=== PATIENT | male | born 2005 | race Caucasian/White ===

== ENCOUNTER 2024-12-24 14:02 | Outpatient (OUT) | payer OTHER, SELFPAY ==
[2024-12-25 06:08] LABS: Hepatitis B Surf Ab Quant <3.5 mIU/mL (Immunity>10)
[2024-12-25 08:09] LABS: Measles Antibodies, IgG 96.4 AU/mL (Immune >16.4); Rubella Antibodies, IgG 5.26 index (Immune >0.99); Varicella-Zoster V Ab, IgG Reactive (Non Reactive)
[2024-12-26 08:08] LABS: QuantiFERON-TB Gold Plus Negative (Negative)
== END 2024-12-24 14:03 | disposition home or self-care (01) ==
LOC: LAB 14:07
PROVIDERS: PCP Family Medicine; Visit Provider Family Medicine
DX: Z00.00 Encounter for general adult medical examination without abnormal findings (principal)
CPT/HCPCS: 36415; 86317; 86480; 86735; 86762; 86765; 86787

== ENCOUNTER 2025-06-23 12:45 | Outpatient (OUT) | payer OTHER, SELFPAY ==
--- OUTSIDE RECORDS SUMMARY | 2025-06-23 12:51 | XMS_ITS | Clinical Summary ---
Author Organization [facility] Address [address] [place] [address] Care Team Providers Care Partner Management Consultant Name Role Phone Unavailable Primary Care Provider Unavailabl e Allergies No known active allergies Medications MedicationSigDispense QuantityRefillsLast FilledStart DateEnd DateStatus albuterol HFA 90 mcg/act inhaler Inhale 1 puff every 4 (four) hours if needed.10/08/2022ctive cetirizine (ZyrTEC) 10 MG tablet Take 10 mg by mouth in the morning.01/10/2023ctive fluocinonide (Lidex) 0.05 % external solution Indications:Other seborrheic dermatitisApply to scalp every day prn for itching or scale 60 mL ctive hydrocortisone 2.5 % cream Indications:Other seborrheic dermatitisApply to face BID prn, hold when clear 28 g ctive triamcinolone (Kenalog) 0.1 % cream Indications:Asteatotic eczemaApply to chest BID prn for flares. Hold when clear. Do not use on the face, neck or skin folds 80 g ctive ketoconazole (NIZOral) 2 % cream Indications:Seborrheic DermatitisApply to face QD 60 g ctive ketoconazole (NIZOral) 2 % shampoo Indications:Other seborrheic dermatitisLather on scalp daily as needed, leave on 3 minutes before rinsing 120 mL ctive Active Problems No known active problems Social History Tobacco UseTypesPacks/DayYears UsedDateSmoking Tobacco: NeverSmokeless Tobacco: Never Tobacco Cessation:Counseling Given: Not Answered Sex and Gender InformationValueDate RecordedSex Assigned at AzjtjWnde32/01/2023 8:01 PM EDTLegal RpnRgdy7910/11/2022 7:34 PM EDTGender BzbvpprgYwff31/15/2023 7:34 PM EDTSexual FkucovljejbSexfoliw89/01/2023 8:01 PM EDT Last Filed Vital Signs Vital SignReadingTime TakenCommentsBlood Syiqkdbh397/72003/01/2020 12:00 PM EDT Pulse--Temperature--Respiratory Rate--Oxygen Saturation--Inhaled Oxygen Concentration--Zdulkt88.6 kg (171 lb)03/01/2020 12:00 PM JGNDpgfon347 cm (6' 4 ) 03/01/2020 12:00 PM EDTBody Mass Index20.8103/01/2020 12:00 PM EDT Plan of Treatment [place] [address]
--- OUTSIDE RECORDS SUMMARY | 2025-06-23 12:52 | XMS_ITS | Clinical Summary ---
Author Organization [facility] Address [facility] [id number] [address] [place] [address] Care Team Providers Care Laundry Manager Name Role Phone Chad Khalil MD Primary Care Provider [phone] Allergies Active AllergyReactionsCriticalityNoted DateCommentsCat Faboyy4104/03/2017Dog Tglcfe0904/03/20175350Qklcce03/05/2017Ragweed Tfgmau3504/03/2017Tree And Shrub Pollen 04/03/2017 Social History Tobacco UseTypesPacks/DayYears UsedDateSmoking Tobacco: Never AssessedChildcare AnswerDate HyflovdmQttrhvlcwJkdpwzx08/12/2019EmploymentAnswerDate Recorded AtsxmwlzbhLcadbpn97/12/2019Purpose - LifeAnswerDate RecordedPurpose and direction in ukggJjwteeb87/11/2021Sex and Gender InformationValueDate Recorded Sex Assigned at BirthNot on fileLegal TgzDsjk4903/04/2015 12:05 PM EDTGender IdentityNot on fileSexual OrientationNot on file Last Filed Vital Signs Vital SignReadingTime TakenCommentsBlood Aekgbwzz35/5510 3:12 PM EDT Tpuhk8670 3:12 PM EDTTemperature--Respiratory Dmmd0744 3:12 PM EDTOxygen Ccequfedyl77%05/26/2013 3:12 PM EDTInhaled Oxygen Concentration-- Bpjfcq39 kg (81 lb 9.1 oz)05/26/2013 3:12 PM HKRSmabyf966.2 cm (5' 0.71 ) 05/26/2013 3:12 PM EDTBody Mass Index15.5610 3:12 PM EDT Plan of Treatment Not on file Medical Devices Not on file Insurance Care Teams Team MemberRelationshipSpecialtyStart DateEnd Chad Khalil MD [facility]10/09/12
--- OUTSIDE RECORDS SUMMARY | 2025-06-23 12:52 | XMS_ITS | Patient Health Record ---
Author Organization [facility] [place] Address [address] [place] [address] Care Team Providers Care Investment Manager Name Role Phone Randy Khalil Primary Care Provider [phone] Allergies Allergen (clinical drug ingredient) Drug/Non Drug Allergy documented on EMR Reaction Allergy Type Onset Date Status Peanuts (uncoded)anaphylaxisAllergyActive Results Component Value Reference Range Notes Measles/Mumps/Rubella Immuni ty Reviewed date:12/25/2024 05:52:36 PM Interpretation: Performing Lab: Notes/Report: [facility] , Rubella Antibodies, IgG 5.26 Immune >0.99 inde x Non-immune <0.90 Equivocal 0.90 - 0.99 Immune >0.99 Measles Antibodies, IgG 96.4 Immune >16.4 AU/m L Negative <13.5 Equivocal 13.5 - 16.4 Positive >16.4 Presence of antibodies to Rubeola is presumptive evidence of immunity except when acute infection is suspected. Mumps Abs, IgG 190.0 Immune >10.9 AU/mL Negative <9.0 Equivocal 9.0 - 10.9 Positive >10.9 A positive result generally indicates past exposure to Mumps virus or previous vaccination. Performed at: - [facility] [id number] Mems Integration Engineer: Davide Salas PhD, Phone: [phone] Performing Lab: see note - [facility] LBHepatitis B Surf Ab Quant Reviewed date:12/25/2024 05:52:36 PM Interpretation: Performing Lab: Notes/Report: [facility] ,Hepatitis B Surf Ab Quant<3.5Immunity>10 mIU/mL Status of Immunity Anti-HBs Level Inconsistent with Immunity 0.0 - 10.0 Consistent with Immunity >10.0 Performed at: [address] [id number] Mems Integration Engineer: Davide Salas PhD, Phone: [phone] Performing Lab:see [facility] LBVaricella-Zoster V Ab, IgG Reviewed date:12/25/2024 05:52:36 PM Interpretation: Performing Lab: Notes/Report: [facility] ,Varicella-Zoster V Ab, IgGReactiveNon Reactive Please note reference interval change A Reactive result is considered evidence of immunity to VZV. Reactive indicates that VZV IgG was detected consistent with previous infection and/or vaccination. A Non Reactive result indicates that VZV IgG was not detected suggesting that immunity has not been acquired. Performed at: [address] [id number] Mems Integration Engineer: Davide Salas PhD, Phone: [phone] Performing Lab:[facility] LBQuantiFERON-TB Gold Plus Reviewed date:12/28/2024 04:22:34 PM Interpretation: Performing Lab: Notes/Report: [facility] ,QuantiFERON Incubation. Incubation performed. Reference Range: . QuantiFERON-TB Gold PlusNegativeNegative No response to M tuberculosis antigens detected. Infection with M tuberculosis is unlikely, but high risk individuals should be considered for additional testing (ATS/IDSA/CDC Clinical Practice Guidelines, 2017). The reference range is an Antigen minus Nil result of <0.35 IU/mL. Chemiluminescence immunoassay methodology Performed at: [address] [id number] Mems Integration Engineer: Davide Salas PhD, Phone: [phone] QuantiFERON CriteriaComment. QuantiFERON-TB Gold Plus is a qualitative indirect test for M tuberculosis infection (including disease) and is intended for use in conjunction with risk assessment, radiography, and other medical and diagnostic evaluations. The QuantiFERON-TB Gold Plus result is determined by subtracting the Nil value from either TB antigen (Ag) value. The Mitogen tube serves as a control for the test. QuantiFERON TB1 Ag Value0.00. IU/mLQuantiFERON TB2 Ag Value0.00. IU/mL QuantiFERON Nil Value0.00. IU/mLQuantiFERON Mitogen Value>10.00. IU/mLPerforming Lab:see noteLC - [facility] LB Reason For Referral No Information Medications Medication SIG (Take, Route, Frequency, Duration) Notes Start Date End Date Status Cetirizine HCl 10 MG TAKE 1 TABLET BY MOUTH EVER Y DAY FOR 90 DAYS; Duration: 90 ActiveVentolin HFA 108 (90 Base) MCG/ACT2 puff as needed Inhalation every 4 hrs; Duration: 30 ibkoRJG8703/08/2023ctiveEpiPen 2-Bo 0.3 MG/0.3MLas directed Injection SINGLE DOSE FOR PEANUT ALLERGY; Duration: 30 daysPRNActive Immunizations Vaccine Route Administration Date Status Comme nts Tdap (Adacel) IM Intramuscular 12/24/2024 Administered Social History Tobacco Use: Social History Observation Description Date Details (start date - stop date) Never Smoker NA - NA Tobacco Use/Smoking Question Answer Notes Patient is a nonsmoker Alcohol Screen (Audit-C) Question Answer Notes Did you have a drink containing alcohol in the p ast year? Yes How often did you have 6 or more drinks on one occasion in the past year?Monthly or less (1 point)How many drinks did you have on a typical day when you were drinking in the past year?1 or 2 drinks (0 point)How often did you have a drink containing alcohol in the past year?Weekly (3 points)Llcrjq7Ugojltmjhwahrg PositiveAUDIT-C (Standard) Question Answer Notes Did you have a drink containing alcohol in the p ast year? 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 [place] [place] [address] 06/23/2025 Randy Hoy Well adult Z00.00 an d Retractile testis Q55.22 [facility] [address] [place] [address] 12/24/2024 Randy Hoy Well adult Z00.00 an d Encounter for immunization Z23 [facility] [address] [place] [place] [address] 12/25/2024 Randy Hoy [facility] [place] [address] 12/28/2024Doug [facility] [place] [address]/Doug HoyPre-employment examination Z02.1[facility] [place] [place] [address]/Doug Hoy Pre-employment examination Z02.[facility] [place] [address]/07/2024Doug [facility] [address] [place] [address]/Doug Hoy Assessments Encounter Date Diagnosis (ICD Code) Assessment Notes Treatment Notes Treatment Clinical Notes Section Notes 12/24/2024 Well adult (ICD-10 - Z00.00) 06/23/2025Retractile testis (ICD-10 - Q55.22)06/23/2025Well adult (ICD-10 - Z00.00)02/17/2025Pre-employment examination (ICD-10 - Z02.1)03/25/2025Pre- employment examination (ICD-10 - Z02.1)12/24/2024Encounter for immunization (ICD-10 - Z23) Plan Of Treatment Pending Test Test Name Order Date HEPATITIS B SURFACE AG 02/17/2025 Alpha Fetoprotein Tumor Marker US Testicular w/ Duplex 06/23/2025 CBC AUTO DIFF 06/23/2025 HEPATITIS B SURFACE ANTIBODY, QUANT 08/2 01/2025 LDH 06/23/2025 PREG QUANT HCG 06/23/2025 PROF 14(COMP METB) 06/23/2025 QUANTIFERON TB GOLD PLUS 12/24/2024 VARICELLA IGG AB 12/24/2024 CT PELVIS W CON 06/23/2025 US PELVIS 06/23/2025 Hep B Core Ab, Tot 12/24/2024 Hep B Surface Ab 12/24/2024 US Scrotum 06/23/2025 Insurance Providers Payer Name Payer Address Payer Phone Subscriber Number Group Number Insured Name Patient Relationship to Insured Coverage Start Date Coverage End Date MMO [employer] [address] [place] [address] [id number] Gustabo Garcia Self - patient is the insured Medical (General) History Medical History History ICD Code Asthma J45.909 Polyp of nasal cavity J33.0 Surgical History Surgery Date(Month/Year) [place] teeth 02/2023 ADENOIDECTOMY,UNDER 12YRS
--- NOTE | 2025-06-23 13:00 | US_ITS ---
[address] [address] Patient Name: RASHIDA REYES MRN: [id number] date: 2005 Sex: M Assigned Patient Location: LAB Current Patient Location: LAB Accession/Order Number: [id number] Exam Date: 06/23/2025 13:01 Report Date: 06/23/2025 13:52 At the request of: JAYSON ARMENTA MD Procedure: US scrotum doppler Scrotal ultrasound Reason for exam: Undescended testicle since at least the age of 13. Comparison: none Technique: Grayscale, color Doppler and spectral Doppler images of the scrotal contents were obtained. Findings: The right testicle measures 4.4 x 2.9 x 1.3 cm and is located within the right inguinal canal. No evidence of testicular mass or microlithiasis. Normal arterial and venous Doppler waveforms. Epididymis appears unremarkable. No hydrocele. The left testicle is normally situated within the scrotal sac measuring 5.0 x 3.4 x 3.0 cm. No evidence of testicular mass or microlithiasis. Normal arterial and venous Doppler waveforms. 4 mm epididymal cyst. Minimal hydrocele. US/US scrotum doppler Impression: No evidence of testicular mass, orchitis, epididymitis or torsion. The right testicle is within the right inguinal canal. 4 mm epididymal cyst. Minimal right-sided hydrocele. Impression dictated by: Giuseppe aBrrow Jr., D.O. 06/23/2025 1:52 PM Dictation Location: [place] [address] Electronically authenticated by: [id number] Y Date: 06/23/2025 13:52
[2025-06-23 13:48] LABS: Hematocrit 47.5 % (42.0-54.0); Hemoglobin 16.4 g/dL (14.0-18.0); Immature Granulocytes Abs Auto 0.02 10^3/uL (0.00-0.03); Immature Granulocytes Pct Auto 0.3 % (0.0-0.5); Lymphocytes Absolute Auto 1.5 10^3/uL (1.2-3.8); Mean Corpuscular HGB Conc 34.5 g/dL (29.9-35.2); Mean Corpuscular Hemoglobin 32.3 pg (25.9-34.0); Mean Corpuscular Volume 93.7 fL (80.0-94.0); Platelet Count 238 10^3/uL (150-450); Red Blood Count 5.07 10^6/uL (4.70-6.10); White Blood Count 6.8 10^3/uL (4.0-11.0)
[2025-06-23 14:06] LABS: Alanine Aminotransferase 29 U/L (16-63); Albumin Globulin Ratio 1.2; Albumin Level 4.1 g/dL (3.4-5.0); Alkaline Phosphatase 110 U/L (46-116); Anion Gap 11.6; Aspartate Amino Transferase 16 U/L (15-37); Blood Urea Nitrogen 17.0 mg/dL (7.0-18.0); Calcium 9.3 mg/dL (8.5-10.1); Carbon Dioxide 31.8 mmol/L (21.0-32.0); Chloride 104 mmol/L (98-107); Estimated GFR (African America >60 (>=60 mL/min/1.73m^2); Estimated GFR (Non-African Ame >60 (>=60 mL/min/1.73m^2); Globulin 3.5 g/dL; Glucose 68 mg/dL (74-106); Potassium 4.4 mmol/L (3.5-5.1); Sodium 143 mmol/L (136-145); Total Protein 7.6 g/dL (6.4-8.2)
[2025-06-24 04:09] LABS: AFP, Serum, Tumor Marker <1.8 ng/mL (0.0-5.7)
== END 2025-06-23 12:46 | disposition home or self-care (01) ==
LOC: LAB 12:49
PROVIDERS: PCP Family Medicine; Visit Provider Family Medicine
DX: Q55.22 Retractile testis (principal); N50.3 Cyst of epididymis
CPT/HCPCS: 36415; 76870; 80053; 82105; 83615; 84702; 85025; 93976

== ENCOUNTER 2025-07-09 08:10 | Outpatient (OUT) | payer OTHER, SELFPAY ==
--- NOTE | 2025-07-09 08:14 | CT_ITS ---
The [address] [address] Patient Name: RASHIDA REYES MRN: [id number] date: 2005 Sex: M Assigned Patient Location: CT Current Patient Location: CT Accession/Order Number: [id number] Exam Date: 07/09/2025 08:48 Report Date: 07/09/2025 09:34 At the request of: JAYSON ARMENTA MD Procedure: CT pelvis w con CT PELVIS WITHOUT CONTRAST CLINICAL DATA: Undescended right testis COMPARISON: Ultrasound 06/23/2025 Spiral images were obtained through the pelvis following 100 mL of Omnipaque 300. This CT exam was performed using one or more following dose reduction techniques: Automated exposure control, adjustment of the mA and/or kV according to patient size, or use of iterative reconstruction technique. The small bowel loops in the egwws-fc-fzpw are within normal limits for caliber. There is air and stool within the right colon and rectosigmoid region. No diverticular disease is noted. The appendix is not well seen. The urinary bladder is poorly distended however no obvious abnormalities are identified. The prostate is within normal limits for size. A right inguinal testis is again demonstrated. Size and attenuation are unremarkable. No obvious discrete mass are seen. There is no ascites. CT/CT pelvis w con IMPRESSION: RIGHT INGUINAL TESTIS. NO ACUTE INTRAPELVIC FINDINGS. Impression dictated by: Shreya Garcia M.D. 07/09/2025 9:34 AM Dictation Location: [place] [address] Electronically authenticated by: [id number] Y Date: 07/09/2025 09:34
== END 2025-07-09 08:11 | disposition home or self-care (01) ==
LOC: CT 08:10
PROVIDERS: PCP Family Medicine; Visit Provider Family Medicine
DX: Q55.22 Retractile testis (principal)
CPT/HCPCS: 72193; Q9967